=== PATIENT | female | born 1990 | race Caucasian/White ===

== ENCOUNTER 2020-05-09 07:51 | Inpatient (IN) ==
[2020-05-09] MEDS ORDERED: LACTATED RINGER'S 1,000 ML IV PRN (08:27)
[2020-05-09] MEDS ORDERED: OXYTOCIN 30 UNITS/500 ML BAG IV PRN (08:27)
--- NOTE | 2020-05-09 08:50 | History & Physical Report ---
Date of Service May 09, 2020 Assessment & Plan (1) Obesity affecting in third trimester, antepartum: (2) Large for gestational age fetus: Patient is a 29-year-old at 39 weeks and 6 days of gestation presenting today for scheduled induction of labor at term due to obesity, polyhydramnios and large for gestational age and suspected macrosomia. Last ultrasound by [facility] was 4260 g which was over 97 percentile. Elevated blood pressures, lower extremity and abdominal skin edema and no severe features Plan to admit, labs, IV fluids and repeat ultrasound for estimated weight and then make a plan for results. All questions were answered. (3) Abnormal glucose affecting : (4) Polyhydramnios affecting in third trimester: (5) Elevated blood pressure affecting in third trimester, antepartum: Admission and Anticipated Discharge Date Admission Date: May 09, 2020 History of Present Illness Primary Care Provider: NO PCP Patient is a 29-year-old at 39 weeks and 6 days of gestation presenting today for induction of labor at term due to suspected macrosomia, polyhydramnios and obesity. She has no complaints other than swelling in her legs and abdomen which has been going on for weeks. She denies contractions, leakage of fluid, vaginal bleeding, headaches, change in her vision, nausea and vomiting, right upper quadrant or epigastric pain. She reports good movements. Her has been complicated by 1 class II obesity 2 polyhydramnios 3 abnormal Glucola, 1 hour 50 g Glucola was elevated and 3-hour OGTT had 1 out of 4 numbers was elevated 4 large for gestational age, baby has been measuring more than 97 percentile by ultrasound. Last ultrasound was done by [facility] on April 30 and estimated weight was 4260 g which was over 97 percentile, head circumference and abdominal circumference variable 99 percentile. She understands that ultrasound is limited, with an error rate of up to 15% more or less with the estimated weight. Discussed the risk of macrosomia during labor with protracted labor, prolonged sitting second stage, shoulder dystocia with risks of clavicle fracture, nerve injury, hypoxia and even . Patient understands all and agrees for another ultrasound today for estimated weight. All questions were answered. Allergies Allergy/AdvReac Type Severity Reaction Status Date / Time No Known Allergies Allergy Unverified 05/03/20 11:58 Home Medications Home Medications Medication Instructions Recorded Confirmed Type [id number]-[id number] 1 tab PO QAM 05/03/20 History [] Patient History Medical History No known health problems Surgical History H/O sinus surgery History of endoscopic sinus surgery x2 History of tonsillectomy and adenoidectomy Social History Smoking Status: Never smoker Second Hand Exposure: No; Hx Alcohol Use: No Hx Substance Use: No Preferred Language: Somali Communication Ability: Effective [employer] Processing [employer] Operator Required: No Beliefs That Will Affect Care: None Current Living Situation: Significant Other Feels Safe at Home: Yes Assistive Devices: Contacts and Glasses 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 Review of Systems All systems reviewed & are unremarkable except as noted in HPI & below Physical Exam Constitutional: WD/WN, vitals as above (Blood pressures are elevated despite changing cuff for larger size) + morbidly obese Respiratory: normal respiratory effort, lungs clear to auscultation Cardiovascular: RRR, no murmur, no edema Rate/Rhythm: regular rate and regular rhythm Gastrointestinal (Abdomen): Inspection/Auscultation: + abdomen distended (Gravid, edema of abdominal skin more on the lower area) Musculoskeletal: Extremities, 3+ lower extremity edema bilaterally and skin tightness. Results & Data ([facility]) Vital Signs (Past 12 Hours) Vital Signs Pulse BP 05/09/20 08:08 85 158/90 H 05/09/20 08:07 85 141/95 H Monitoring External Monitor heart rate at 140s to 150s confirmed by ultrasound, unable to keep baby on the monitor all the time. Tocodynamometer No contractions.
[2020-05-09 09:07] LABS: Basophils # (auto) 0.02 K/uL (0-0.2); Basophils % (auto) 0.2 %; Eosinophils # (auto) 0.04 K/uL (0-0.5); Eosinophils % (auto) 0.4 %; Hematocrit (blood only) 35.9 % (37-47); Hemoglobin 11.7 g/dL (12.0-16.0); Immature Granulocytes # (auto) 0.04 K/uL (0.00-0.02); Immature Granulocytes % (auto) 0.4 %; Lymphocytes # (auto) 1.41 K/uL (1.2-3.4); Lymphocytes % (auto) 14.6 %; Mean Corpuscular Hemoglobin 26.9 pg (25-34); Mean Corpuscular Hgb Conc 32.6 g/dL (32-36); Mean Corpuscular Volume 82.5 fL (80-100); Mean Platelet Volume 10.7 fL (7.4-10.4); Monocytes # (auto) 0.43 K/uL (0.11-0.59); Monocytes % (auto) 4.5 %; Neutrophils % (auto) 79.9 %; Platelet Count 210 K/uL (130-400); RDW Coefficient of Variation 13.3 % (11.5-14.5); RDW Standard Deviation 40.2 fL (36.4-46.3); Red Blood Count 4.35 M/uL (4.2-5.4); White Blood Count 9.64 K/uL (4.8-10.8)
[2020-05-09 09:29] LABS: Albumin Level 2.3 gm/dl (3.4-5.0); Calcium 8.5 mg/dl (8.5-10.1); Creatinine Clr Calc Pharmacy 204.4 ml/min; Est GFR (African American) 140.2; Potassium 3.6 mmol/L (3.5-5.1)
[2020-05-09 09:31] LABS: Albumin Globulin Ratio 0.6 (0.9-2); Bilirubin,Total 0.2 mg/dl (0.2-1); Globulin 3.8 gm/dl (2.5-4.0); Total Protein 6.1 gm/dl (6.4-8.2)
--- NOTE | 2020-05-09 10:14 | Ultrasound Report ---
ULTRASOUND LIMITED CLINICAL HISTORY: Large for dates. COMPARISON STUDY: No priors. FINDINGS: Real-time, grayscale, and color Doppler sonography of the fetus and gravid uterus is perfor med. There is a single live uterine gestation with estimated heart rate of 145 bpm. Positioning is ce phalic. The placenta is anterior and normal in appearance. Amniotic fluid volume appears grossly dimi nished. The amniotic fluid index was not calculated. Abdominal circumference: 37.44 cm corresponding to an estimated age of 41 weeks 3 days. Biparietal diameter: 9.3 cm corresponding to an estimated age of 40 weeks 2 days. Head circumference: 34.95 cm, corresponding to estimated age of 40 weeks 4 days. Femoral length: 8.03 cm, corresponding to estimated age of 41 weeks 0 days. The cumulative estimation of dates is 40 weeks 4 days +/- 1 week 0 days. Estimated weight is 4285 g +/- 643 g. IMPRESSION: 1. There is a single live intrauterine gestation with an estimated age of 40 weeks 4 days. 2. Note that this does not constitute a dedicated anatomic scan. 3. The anatomic fluid volume appears grossly diminished. Dictated: 05/09/2020 9:48 AM Transcribed: 05/09/2020 10:11 AM [facility] [id number] [email or web address] Electronically signed by: Milton Fung M.D. 05/09/2020 10:12 AM
--- NOTE | 2020-05-09 10:22 | Obstetrical Progress Note ---
Date of Service May 09, 2020 Assessment & Plan Admission and Anticipated Discharge Date Admission Date: May 09, 2020 Subjective Patient is back from ultrasound. Estimated weight is 4285 g +/- 643 g Discussed above and a cog recommendation of elective if estimated weight is more than 5000 g with no history of diabetes and 4500 g with a history of gestational diabetes. Understands that ultrasound has limitations as above 643 g. Discussed the risk of shoulder dystocia and as a major surgery with risks of bleeding, infection, injury to surrounding organs, blood clots in legs or lungs and prolonged recovery. Patient understands all and desires to proceed with trial of vaginal . Discussed induction of labor and cervical ripening with prostaglandins, oral Cytotec versus intravaginal Cervidil. Patient desires intravaginal Cervidil for cervical ripening. Understands induction may take 1 to 3 days depending on her response to medications. All questions were answered. Results & Data ([facility]) Vital Signs (Past 12 Hours) Vital Signs Temp Pulse Resp BP 05/09/20 08:31 37.0 C 20 05/09/20 08:08 85 158/90 H 05/09/20 08:07 37.0 C 85 20 141/95 H
[2020-05-09] MEDS ORDERED: DINOPROSTONE 10 MG INSERT PV ONE (10:30)
[2020-05-09] MEDS ORDERED: FLUCONAZOLE 50 MG TAB PO ONE ×2 (11:00→22:26)
--- NOTE | 2020-05-09 15:32 | Obstetrical Progress Note ---
Date of Service May 09, 2020 Assessment & Plan Admission and Anticipated Discharge Date Admission Date: May 09, 2020 Subjective Patient is reevaluated She fels well, no complaints No ctxs/ LOF/VB +FM Feels mild irregular cramps, 1/10 in intensity She zhao sbeen ambulating in hallway and in her room FHR 130's, reactive, accels+, no decels Continue to monitor and with cervical ripening. SCD's while in bed Results & Data ([facility]) Vital Signs (Past 12 Hours) Vital Signs Temp Pulse Resp BP 05/09/20 14:31 37.0 C 75 22 137/81 05/09/20 10:58 70 143/84 H 05/09/20 08:31 37.0 C 20 05/09/20 08:08 85 158/90 H 05/09/20 08:07 37.0 C 85 20 141/95 H
--- NOTE | 2020-05-09 22:26 | Obstetrical Progress Note ---
Date of Service May 09, 2020 Assessment & Plan Admission and Anticipated Discharge Date Admission Date: May 09, 2020 Subjective Patient is reevaluated. She feels contractions more often and more painful now. They are coming every 4-5 minutes and pain level is 5 out of 10. No leakage of fluid or vaginal bleeding. Good movements. She is hungry and likes to eat regular food. Vaginal exam, vagina also has cottage cheese discharge erythema and tenderness, consistent with Robyn. Patient was prescribed Diflucan this morning but she refused to take it. Very tender during exam Cervidil was removed but unable to reach her cervix due to discomfort. Unlikely change in cervix, which was very high posterior and closed. Discussed the finding and recommended antifungal for yeast infection and now she agrees. Discussed cervical ripening with oral Cytotec and she prefers that. heart rate has been reassuring. Blood pressures have been within normal limits and she had normal labs. We will continue to monitor closely. All questions were answered. Results & Data ([facility]) Vital Signs (Past 12 Hours) Vital Signs Temp Pulse Resp BP 05/09/20 19:17 36.7 C 74 20 137/85 05/09/20 19:15 68 150/93 H 05/09/20 14:31 37.0 C 75 22 137/81 05/09/20 10:58 70 143/84 H
[2020-05-09] MEDS ORDERED: BUTORPHANOL TARTRATE 1 MG/ML VIAL IV PRN (22:45)
[2020-05-09] MEDS ORDERED: miSOPROStoL 50 MCG TAB ONE (22:52)
[2020-05-10] MEDS: miSOPROStoL 50 MCG TAB PO SCH ×6 (00:30→19:40)
[2020-05-10] MEDS ORDERED: FLUCONAZOLE 50 MG TAB PO ONE (10:33)
--- NOTE | 2020-05-10 10:33 | Obstetrical Progress Note ---
Date of Service May 10, 2020 Assessment & Plan Admission and Anticipated Discharge Date Admission Date: May 09, 2020 Physical Exam Genitourinary: Manual OB Exam: + cervical dilation fingertip, + cervical effacement (0%) and + station high OB Exam Monitor Tracing: + external FHT monitor used and + external uterine monitor used Continue Cytotec orally Results & Data ([facility]) Vital Signs (Past 12 Hours) Vital Signs Temp Pulse Resp BP 05/10/20 10:16 82 154/86 H 05/10/20 07:41 64 174/90 H 05/10/20 07:30 36.7 C 05/10/20 07:23 85 167/96 H 05/10/20 07:22 72 166/91 H 05/10/20 04:32 73 130/76 05/10/20 04:31 36.8 C 05/10/20 01:16 71 140/87 05/09/20 23:06 36.7 C 05/09/20 22:59 77 155/79 H
[2020-05-10] MEDS ORDERED: LABETALOL HCL 100 MG TAB PO ONE (14:32)
[2020-05-10 15:49] LABS: Basophils # (auto) 0.01 K/uL (0-0.2); Basophils % (auto) 0.1 %; Eosinophils # (auto) 0.04 K/uL (0-0.5); Eosinophils % (auto) 0.4 %; Hematocrit (blood only) 37.2 % (37-47); Hemoglobin 12.1 g/dL (12.0-16.0); Immature Granulocytes # (auto) 0.01 K/uL (0.00-0.02); Immature Granulocytes % (auto) 0.1 %; Lymphocytes # (auto) 1.24 K/uL (1.2-3.4); Lymphocytes % (auto) 12.8 %; Mean Corpuscular Hemoglobin 27.2 pg (25-34); Mean Corpuscular Volume 83.6 fL (80-100); Mean Platelet Volume 10.8 fL (7.4-10.4); Monocytes # (auto) 0.62 K/uL (0.11-0.59); Monocytes % (auto) 6.4 %; Neutrophils # (auto) 7.73 K/uL (1.4-6.5); Neutrophils % (auto) 80.2 %; Platelet Count 228 K/uL (130-400); RDW Coefficient of Variation 13.5 % (11.5-14.5); RDW Standard Deviation 40.6 fL (36.4-46.3); Red Blood Count 4.45 M/uL (4.2-5.4); White Blood Count 9.65 K/uL (4.8-10.8)
[2020-05-10 15:57] LABS: Mean Corpuscular Hgb Conc 32.5 g/dL (32-36)
[2020-05-10 16:10] LABS: Albumin Level 2.2 gm/dl (3.4-5.0); BUN Creatinine Ratio 13.6 (10-20); Calcium 8.5 mg/dl (8.5-10.1); Est GFR (African American) 138.1; Est GFR (Non-African American) 119.1; Potassium 3.8 mmol/L (3.5-5.1)
[2020-05-10 16:13] LABS: Albumin Globulin Ratio 0.6 (0.9-2); Bilirubin,Total 0.3 mg/dl (0.2-1); Total Protein 6.2 gm/dl (6.4-8.2)
[2020-05-10] MEDS ORDERED: LABETALOL HCL 100 MG TAB PO SCH (21:00)
[2020-05-10] MEDS ORDERED: DINOPROSTONE 10 MG INSERT PV ONE (23:15)
--- NOTE | 2020-05-10 23:48 | Obstetrical Progress Note ---
Date of Service May 10, 2020 Assessment & Plan Admission and Anticipated Discharge Date Admission Date: May 09, 2020 Physical Exam Physical Exam: Cervidil placed vaginally for cervical ripening. T Cat 1. Cervix remains unchanged. Will monitor intermittently overnight. Results & Data ([facility]) Vital Signs (Past 12 Hours) Vital Signs Temp Pulse Resp BP 05/10/20 23:08 36.7 C 79 20 135/82 05/10/20 20:52 71 142/87 H 05/10/20 19:03 36.7 C 73 20 157/83 H 05/10/20 16:53 85 166/85 H 05/10/20 16:12 76 146/77 H 05/10/20 15:43 86 163/83 H 05/10/20 15:07 79 184/108 H 05/10/20 14:41 36.8 C 79 18 182/98 H 05/10/20 14:25 85 189/104 H 05/10/20 13:15 71 186/99 H 05/10/20 13:14 70 188/92 H
[2020-05-11] MEDS: miSOPROStoL 50 MCG TAB PO SCH (07:48)
--- NOTE | 2020-05-11 08:29 | Progress Note ---
Date of Service May 11, 2020 Assessment & Plan Admission and Anticipated Discharge Date Admission Date: May 09, 2020 Subjective Pt doing well s/p induction for polyhydramnios, LGA and obesity pt has received Cytotec and Cervidil x 2 days presently has Cervidil in vagina - comes out at 11;00 will evaluate pt at that time Results & Data ([facility]) Vital Signs (Past 12 Hours) Vital Signs Temp Pulse Resp BP 05/11/20 07:19 36.8 C 18 05/11/20 07:03 79 166/88 H 05/11/20 06:00 36.9 C 81 20 144/97 H 05/11/20 01:47 36.9 C 81 20 139/79 05/10/20 23:08 36.7 C 79 20 135/82 05/10/20 20:52 71 142/87 H
--- NOTE | 2020-05-11 08:32 | Progress Note ---
Date of Service May 11, 2020 Assessment & Plan Admission and Anticipated Discharge Date Admission Date: May 09, 2020 Subjective Elevated BP - ON labetalol 100mg will increase dose to 200mg Results & Data ([facility]) Vital Signs (Past 12 Hours) Vital Signs Temp Pulse Resp BP 05/11/20 07:19 36.8 C 18 05/11/20 07:03 79 166/88 H 05/11/20 06:00 36.9 C 81 20 144/97 H 05/11/20 01:47 36.9 C 81 20 139/79 05/10/20 23:08 36.7 C 79 20 135/82 05/10/20 20:52 71 142/87 H
[2020-05-11] MEDS: LABETALOL HCL 200 MG TAB PO SCH ×2 (09:15→21:17)
[2020-05-11] MEDS ORDERED: Nursing to Pharmacy Communication SCH (09:45)
--- NOTE | 2020-05-11 12:49 | Progress Note ---
Date of Service May 11, 2020 Assessment & Plan Admission and Anticipated Discharge Date Admission Date: May 09, 2020 Subjective pt doing well Cervidil removed Attempt to place Boudreaux bulb was unsuccessfully. pt could not tolerate speculum exam VE; ft/50/-3 will start Pitocin Sono done 05/09/20 was 4300grams @ [facility] she was offered c/sec by Dr Borrero on admission and refused We have discussed risk of shoulder dystocia and neurological damage from dystocia pt does not think "larger babies" are a problem because she has a niece who delivered a9-10 lb baby without a problem we have agreed to a try of pitocin Results & Data ([facility]) Vital Signs (Past 12 Hours) Vital Signs Temp Pulse Resp BP 05/11/20 11:07 90 163/91 H 05/11/20 11:05 36.9 C 18 05/11/20 09:14 83 168/98 H 05/11/20 07:19 36.8 C 18 05/11/20 07:03 79 166/88 H 05/11/20 06:00 36.9 C 81 20 144/97 H 05/11/20 01:47 36.9 C 81 20 139/79
[2020-05-11] MEDS ORDERED: NIFEdipine EXTENDED REL 30 MG TABCR PO STA (13:40)
[2020-05-11] MEDS ORDERED: OXYTOCIN 30 UNITS/500 ML BAG IV PRN (13:40)
[2020-05-11] MEDS ORDERED: LACTATED RINGER'S 1,000 ML IV PRN (13:58)
[2020-05-11] MEDS ORDERED: LACTATED RINGER'S 1,000 ML IV SCH ×3 (19:15→22:45)
[2020-05-11] MEDS ORDERED: METOCLOPRAMIDE HCL INJ 5 MG/ML 2 ML VIAL ONE (20:18)
[2020-05-11] MEDS ORDERED: ePHEDrine sulfate 50 MG/ML AMP ONE (20:18)
[2020-05-11] MEDS ORDERED: OXYTOCIN 10 UNITS/ML VIAL ONE ×4 (20:18→22:20)
[2020-05-11] MEDS ORDERED: PHENYLEPHRINE HCL 10 MG/ML VIAL ONE (20:18)
[2020-05-11] MEDS ORDERED: ONDANSETRON INJ 2 MG/ML 2 ML VIAL ONE (20:18)
[2020-05-11] MEDS ORDERED: fentaNYL citrate 100 MCG/2 ML VIAL ONE (20:19)
[2020-05-11] MEDS ORDERED: MoRPHine SULFATE PF 1 MG/ML 10 ML AMP/VIAL ONE (20:19)
--- NOTE | 2020-05-11 20:31 | Anesthesiology Consultation ---
Date of Service May 11, 2020 Assessment & Plan Chart Review Chart Review: Acceptable Risk for Surgery Consults Requested none ASA ASA3 Proposed Anesthesia Anesthesia Type: Spinal Risk / Benefits Reviewed With: PT / POA / Parent / Guardian, Accepts Plan and Informed Consent Obtained History Surgery Operation Date: 05/11/20 20:15 Proposed Procedures p Section in LD - Kiran Santizo MD Height/Weight Height: 5 ft 9 in Weight: 144.696 kg Allergies Allergy/AdvReac Type Severity Reaction Status Date / Time No Known Allergies Allergy Unverified 05/03/20 11:58 Medications Home Medications Medication Instructions Recorded Confirmed Last Taken yvfwtxfu-[id number]-Gn-FA 1 tab PO QAM 05/03/20 05/09/20 Unknown [] Active Medications Generic Name Dose Route Start Last Admin Trade Name Freq PRN Reason Stop Dose Admin Oxytocin 30 units in 500 mls @ 0 mls/hr 05/11/20 13:40 05/11/20 20:10 Pitocin IV 05/13/20 13:39 0 units/hr .Q0M PRN 0 mls/hr Labor Induction/Augmentation Titration Protocol 0 UNITS/HR Labetalol HCl 200 mg 05/11/20 09:00 05/11/20 09:15 Labetalol Hcl 200 Mg Tab PO 06/10/20 08:59 200 mg BID NUPUR Administration NPO Date Last Intake of Fluids: 05/11/20 Time Last Intake of Fluids: 19:30 Date Last Intake of Solids: 05/11/20 Past Medical History Medical History No known health problems Exercise / Class Metabolic Activity II 4-5 Yardwork/Stairs/Walk up hill Past Surgical History Surgical History (Updated 05/11/20 @ 20:30 by Rasheeda Dial DO) H/O hand surgery H/O sinus surgery History of endoscopic sinus surgery x2 History of tonsillectomy and adenoidectomy Past Anesthesia History No Hx of Anesthesia Complications and No Family Hx of Anesthesia Complications History of PONV No Hx of PONV and No Hx of Motion Sickness Social History Smoking Status: Former smoker Hx Alcohol Use: No Hx Substance Use: No substance use type: does not use Physical Exam Vital Signs Last Vital Signs Temp 36.9 C 05/11/20 19:05 Pulse 87 05/11/20 19:05 Resp 18 05/11/20 19:05 BP 145/81 H 05/11/20 19:05 ENMT Mouth: no TMJ abnormality Thyromental Distance: > or= 3.5 Finger Breadths Mallampati Class: II Neck normal visual inspection and trachea midline; neck extension not limited Respiratory normal respiratory effort Auscultation: lungs clear to auscultation bilaterally Cardiovascular Rate/Rhythm: regular rate and regular rhythm Heart Sounds: no murmur Musculoskeletal Spine: normal cervical ROM Extremities: full ROM of extremities Neurologic moves all extremities Psychiatric Orientation: alert and oriented x 3 Testing Laboratory Results 05/10/20 15:38 05/10/20 15:38 Blood Type A Positive 05/09/20 08:47 Antibody Screen NEGATIVE 05/09/20 08:47
[2020-05-11] MEDS ORDERED: MoRPHine SULFATE PF 1 MG/ML 10 ML AMP/VIAL INT SPINAL ONE (20:40)
[2020-05-11] MEDS ORDERED: NALOXONE HCL 1 MG in SODIUM CHLORIDE 0.9% 1000ML 1,000 ML IV PRN (20:40)
[2020-05-11] MEDS ORDERED: NALOXONE HCL 0.4 MG/1 ML VIAL/CARP IV PRN (20:40)
[2020-05-11] MEDS ORDERED: ePHEDrine sulfate 50 MG/ML AMP IV PRN (20:40)
[2020-05-11] MEDS ORDERED: ONDANSETRON INJ 2 MG/ML 2 ML VIAL IV PRN (20:40)
[2020-05-11] MEDS ORDERED: MEPERIDINE HCL 25 MG/ML CARP/VIAL IV PRN (20:40)
[2020-05-11] MEDS ORDERED: LACTATED RINGER'S 500 ML IV PRN (20:40)
[2020-05-11] MEDS ORDERED: diphenhydrAMINE 50 MG/ML VIAL IV PRN (20:40)
[2020-05-11] MEDS ORDERED: METOCLOPRAMIDE HCL 20 MG in SODIUM CHLORIDE 0.9% 50 ML IV PRN (20:40)
[2020-05-11] MEDS ORDERED: NALOXONE HCL 0.08 MG in SYRINGE 1.8 ML IV PRN (20:40)
[2020-05-11] MEDS ORDERED: SODIUM CHLORIDE 0.9% 1000ML 1,000 ML IV SCH (20:45)
[2020-05-11] MEDS ORDERED: NO NARCOTICS OR SEDATIVES SCH (20:45)
[2020-05-11] MEDS ORDERED: METHYLERGONOVINE MALEATE 0.2 MG/ML AMP ONE (21:40)
[2020-05-11 22:07] LABS: Base Excess Cord Arterial Bld -0.5 mEq/L (-9-1.8); CO2 Cord Arterial Blood 59 mmHg (39.1-73.5); HCO3 Cord Arterial Blood 28 mmol/L (19.7-28.5); PO2 Cord Arterial Blood 20 mmHg (4.1-31.7); pH Cord Arterial Blood 7.29 (7.1-7.38)
[2020-05-11 22:18] LABS: Base Excess Cord Venous Blood -1.3 mEq/L (-7.7-1.9); Cord Venous Blood HCO3 24 mmol/L (18.4-26.8); Cord Venous Blood PCO2 45 mmHg (30.4-57.2); Cord Venous Blood PO2 37 mmHg (14.1-43.3); Cord Venous Blood pH 7.36 (7.20-7.44)
[2020-05-11 22:19] LABS: Oxygen Sat Cord Arterial Blood < 60.0 % (<60)
[2020-05-11] MEDS ORDERED: PHENYLEPHRINE 100MCG/ML 5ML SYR ONE (22:21)
[2020-05-11] MEDS ORDERED: HYDROCORTISONE ACETATE 25 MG SUPP PR PRN (22:38)
[2020-05-11] MEDS ORDERED: SUPERCREAM 0.870% 15 GM JAR EXT PRN (22:38)
[2020-05-11] MEDS ORDERED: DIPHTHERIA/TETANUS/PERTUSSIS 0.5 ML SYR/VIAL IM ONE (22:38)
[2020-05-11] MEDS ORDERED: SENNA 8.6 MG TAB PO PRN (22:38)
[2020-05-11] MEDS ORDERED: BENZOCAINE 20% AER SPR 82.5 GM CAN EXT PRN (22:38)
[2020-05-11] MEDS ORDERED: MAGNESIUM HYDROXIDE SUSP 30 ML UDC PO PRN (22:38)
[2020-05-11] MEDS ORDERED: PROMETHAZINE HCL 25 MG in SODIUM CHLORIDE 0.9% 50 ML IV PRN (22:38)
--- NOTE | 2020-05-11 22:47 | Post Operative Brief Note ---
Immediate Post Op Note v1 Date of Surgery May 11, 2020 Pre & Post Diagnosis Operation Date: 05/11/20 20:15 Pre-Op Diagnosis: 1. Pending macrosomnia Post-Op Diagnosis: 1. Same 2. Delivery of live female child at 2132 I identified the patient and participated in the time-out.: Yes Procedure Operation Date: 05/11/20 20:15 Actual Procedures p Section in LD - Kiran Santizo MD Surgeon Kiran Santizo MD Lab Technician dr andrade Estimated Blood Loss 900 Findings Consistent with Post-Op Diagnosis Drains Boudreaux Catheter
--- NOTE | 2020-05-11 22:55 | Anesthesiology Progress Note ---
Date of Service May 11, 2020 Anesthesia Post Procedure Vital Signs Vital Signs: Temp Pulse Resp BP Pulse Ox 05/11/20 22:52 133 H 148/91 H 05/11/20 22:50 99 H 97 05/11/20 22:48 94 H 90 05/11/20 22:45 105 H 97 05/11/20 22:41 99 H 139/95 05/11/20 19:05 36.9 C 87 18 145/81 H 05/11/20 18:01 77 152/91 H 05/11/20 17:30 18 05/11/20 16:00 36.7 C 18 05/11/20 15:30 18 05/11/20 15:00 36.8 C 77 20 145/86 H 05/11/20 13:54 36.8 C 77 20 145/86 H 05/11/20 11:07 90 163/91 H 05/11/20 11:05 36.9 C 18 05/11/20 09:14 83 168/98 H 05/11/20 07:19 36.8 C 18 05/11/20 07:03 79 166/88 H 05/11/20 06:00 36.9 C 81 20 144/97 H 05/11/20 01:47 36.9 C 81 20 139/79 05/10/20 23:08 36.7 C 79 20 135/82 Transfer of Care Handoff Completed per policy Notes Mental Status: alert / awake / arousable and participated in evaluation Nausea / Vomiting: adequately controlled Pain: adequately controlled Airway Patency, RR, SpO2: stable & adequate BP & HR: stable & adequate Hydration State: stable & adequate Neuraxial Anesthesia: was administered and sensory block is resolving Anesthetic Complications: no major complications apparent and Pt Satisfied with anesthetic care
[2020-05-12] MEDS: LABETALOL HCL 200 MG TAB PO SCH ×3 (00:30→20:59)
[2020-05-12] MEDS: MoRPHine SULFATE 2 MG/ML CARP IV PRN ×2 (01:14→04:40)
[2020-05-12] MEDS ORDERED: OXYTOCIN 20 UNITS in LACTATED RINGER'S 1,000 ML IV SCH (01:30)
[2020-05-12] MEDS ORDERED: CITRIC ACID/SODIUM CITRATE 15 ML UDC PO SCH (06:00)
[2020-05-12 06:15] LABS: Basophils # (auto) 0.01 K/uL (0-0.2); Basophils % (auto) 0.1 %; Eosinophils # (auto) 0.02 K/uL (0-0.5); Eosinophils % (auto) 0.1 %; Hematocrit (blood only) 31.9 % (37-47); Hemoglobin 10.6 g/dL (12.0-16.0); Immature Granulocytes # (auto) 0.02 K/uL (0.00-0.02); Immature Granulocytes % (auto) 0.1 %; Lymphocytes # (auto) 1.43 K/uL (1.2-3.4); Mean Corpuscular Hemoglobin 27.5 pg (25-34); Mean Corpuscular Hgb Conc 33.2 g/dL (32-36); Mean Corpuscular Volume 82.6 fL (80-100); Mean Platelet Volume 10.5 fL (7.4-10.4); Neutrophils # (auto) 11.86 K/uL (1.4-6.5); Neutrophils % (auto) 82.7 %; Platelet Count 206 K/uL (130-400); RDW Coefficient of Variation 13.6 % (11.5-14.5); Red Blood Count 3.86 M/uL (4.2-5.4); White Blood Count 14.34 K/uL (4.8-10.8)
[2020-05-12 06:32] LABS: Prothrombin Time 10.3 Seconds (9.0-12.0)
[2020-05-12] MEDS: KETOROLAC 30 MG/ML VIAL IV PRN ×3 (07:38→13:36)
[2020-05-12] MEDS: SIMETHICONE 80 MG CHEW PO SCH ×4 (07:42→21:00)
[2020-05-12] MEDS: DOCUSATE SODIUM 100 MG CAP PO SCH ×2 (07:42→21:00)
[2020-05-12] MEDS: metroNIDAZOLE 500 MG TAB PO SCH ×3 (07:42→23:05)
[2020-05-12] MEDS: FERROUS SULFATE 325 MG TAB PO SCH (07:42)
[2020-05-12] MEDS: cephALEXin 500 MG CAP PO SCH ×3 (07:42→23:05)
[2020-05-12] MEDS: PRENATAL VITAMIN 1 TAB PO SCH (07:42)
[2020-05-12] MEDS: ENOXAPARIN INJ 40 MG/0.4 ML SYR SQ SCH (07:48)
--- NOTE | 2020-05-12 10:36 | Obstetrical Progress Note ---
Date of Service May 12, 2020 Assessment & Plan Admission and Anticipated Discharge Date Admission Date: May 09, 2020 Physical Exam Physical Exam: bandage is clean and dry no calf tenderness abdomen soft and non tender bowel sounds present hypoactive vaginal bleeding scant hgb 10.6 Results & Data ([facility]) Vital Signs (Past 12 Hours) Vital Signs Temp Pulse Pulse Pulse Resp BP BP 05/12/20 08:05 18 05/12/20 08:00 37.2 C 98 H 18 147/93 H 05/12/20 07:35 18 05/12/20 06:25 37.3 C 106 H 16 147/95 H 05/12/20 05:05 16 05/12/20 04:05 18 05/12/20 03:00 18 05/12/20 02:40 37.1 C 95 H 18 140/86 05/12/20 02:00 16 05/12/20 01:21 117 H 05/12/20 01:16 109 H 05/12/20 01:11 99 H 05/12/20 01:06 109 H 05/12/20 01:01 105 H 05/12/20 00:56 111 H 05/12/20 00:51 124 H 05/12/20 00:46 100 H 05/12/20 00:42 96 H 156/74 H 05/12/20 00:41 37.0 C 101 H 20 05/12/20 00:36 96 H 05/12/20 00:33 18 05/12/20 00:31 98 H 05/12/20 00:26 96 H 05/12/20 00:22 101 H 141/74 H 05/12/20 00:21 96 H 05/12/20 00:16 120 H 05/12/20 00:11 95 H 05/12/20 00:06 102 H 05/12/20 00:05 102 H 163/95 H 05/12/20 00:01 119 H 05/11/20 23:56 98 H 05/11/20 23:52 161/75 H 05/11/20 23:51 100 H 05/11/20 23:46 114 H 05/11/20 23:42 101 H 160/78 H 05/11/20 23:41 37.0 C 103 H 18 05/11/20 23:36 111 H 05/11/20 23:33 108 H 163/85 H 05/11/20 23:31 120 H 18 05/11/20 23:26 108 H 05/11/20 23:22 108 H 162/70 H 05/11/20 23:21 106 H 18 05/11/20 23:16 100 H 05/11/20 23:12 95 H 182/77 H 05/11/20 23:11 99 H 18 05/11/20 23:06 109 H 05/11/20 23:02 96 H 157/90 H 05/11/20 23:01 124 H 18 05/11/20 22:56 114 H 05/11/20 22:54 119 H 05/11/20 22:52 133 H 148/91 H 05/11/20 22:51 20 05/11/20 22:50 99 H 05/11/20 22:48 94 H 05/11/20 22:45 105 H 05/11/20 22:41 36.8 C 99 H 20 139/95 Pulse Ox 05/12/20 08:05 99 05/12/20 08:00 99 05/12/20 07:35 99 05/12/20 06:25 99 05/12/20 05:05 99 05/12/20 04:05 99 05/12/20 03:00 99 05/12/20 02:40 99 05/12/20 02:00 96 05/12/20 01:21 97 05/12/20 01:16 95 05/12/20 01:11 95 05/12/20 01:06 95 05/12/20 01:01 95 05/12/20 00:56 96 05/12/20 00:51 96 05/12/20 00:46 97 05/12/20 00:42 05/12/20 00:41 97 05/12/20 00:36 97 05/12/20 00:33 05/12/20 00:31 96 05/12/20 00:26 96 05/12/20 00:22 05/12/20 00:21 97 05/12/20 00:16 97 05/12/20 00:11 96 05/12/20 00:06 96 05/12/20 00:05 05/12/20 00:01 95 05/11/20 23:56 96 05/11/20 23:52 05/11/20 23:51 95 05/11/20 23:46 95 05/11/20 23:42 05/11/20 23:41 96 05/11/20 23:36 97 05/11/20 23:33 05/11/20 23:31 96 05/11/20 23:26 96 05/11/20 23:22 05/11/20 23:21 96 05/11/20 23:16 96 05/11/20 23:12 05/11/20 23:11 96 05/11/20 23:06 98 05/11/20 23:02 05/11/20 23:01 96 05/11/20 22:56 96 05/11/20 22:54 85 L 05/11/20 22:52 05/11/20 22:51 05/11/20 22:50 97 05/11/20 22:48 90 05/11/20 22:45 97 05/11/20 22:41
[2020-05-12] MEDS ORDERED: diphenhydrAMINE Capsule 25 MG CAP PO PRN (14:40)
[2020-05-12] MEDS ORDERED: ONDANSETRON INJ 2 MG/ML 2 ML VIAL IV PRN (14:40)
[2020-05-12] MEDS ORDERED: diphenhydrAMINE 50 MG/ML VIAL IV PRN (14:40)
[2020-05-12] MEDS ORDERED: ZOLPIDEM TARTRATE 5 MG TAB PO PRN (14:40)
[2020-05-12] MEDS ORDERED: DC INTRASPINAL MORPHINE SCH (14:40)
[2020-05-12] MEDS: IBUPROFEN 600 MG TAB PO PRN (18:19)
[2020-05-12] MEDS: oxyCODONE/ACETAMINOPHEN 5mg/325mg TAB PO PRN (18:19)
[2020-05-12] MEDS ORDERED: bisacodyL 5 MG TABEC PO SCH (20:00)
[2020-05-13] MEDS: IBUPROFEN 600 MG TAB PO PRN ×3 (00:13→08:43)
[2020-05-13] MEDS: oxyCODONE/ACETAMINOPHEN 5mg/325mg TAB PO PRN ×3 (00:14→08:44)
[2020-05-13 05:49] LABS: Hematocrit (blood only) 27.1 % (37-47); Hemoglobin 8.9 g/dL (12.0-16.0)
--- NOTE | 2020-05-13 07:51 | Obstetrical Progress Note ---
Date of Service May 13, 2020 Assessment & Plan Admission and Anticipated Discharge Date Admission Date: May 09, 2020 Physical Exam Physical Exam: abdomen soft and non tender passing flatus incision is clean and dry no calf tenderness ambulating well vaginal bleeding scant hgb 8.9 patient requests discharge Results & Data ([facility]) Vital Signs (Past 12 Hours) Vital Signs Temp Pulse Resp BP Pulse Ox 05/12/20 23:30 37.1 C 103 H 20 136/79 96
[2020-05-13] MEDS: SIMETHICONE 80 MG CHEW PO SCH (08:42)
[2020-05-13] MEDS: DOCUSATE SODIUM 100 MG CAP PO SCH (08:44)
[2020-05-13] MEDS: FERROUS SULFATE 325 MG TAB PO SCH (08:45)
[2020-05-13] MEDS: metroNIDAZOLE 500 MG TAB PO SCH (08:46)
[2020-05-13] MEDS: LABETALOL HCL 200 MG TAB PO SCH (08:48)
[2020-05-13] MEDS: ENOXAPARIN INJ 40 MG/0.4 ML SYR SQ SCH (08:52)
[2020-05-13] MEDS: PRENATAL VITAMIN 1 TAB PO SCH (09:06)
--- NOTE | 2020-05-13 09:06 | Discharge Summary (DS) ---
Patient is a 1, para 1, blood type O positive, group B strep negative, was admitted for being postdates. She had obesity associated with , elevated blood pressure and polyhydramnios. She underwent a 3-day induction that failed. They could not get the cervix open at all. They were unable even to put in a Boudreaux balloon. They did several tapes, several Cytotec. On the third day, she underwent a primary low segment section due to the patient's weight and a very high position of the head. We made a midline incision and then did a primary low segment section. At the time of , there was a true knot in the cord and there was a low anterior placenta. The entry into the uterus was just a tad below the placenta. Bleeding was moderate to more than average. Her preoperative hemoglobin was 12.1. Postoperatively, her hemoglobin fell to 8.9. On the second postoperative day, she was ambulating well, eating well. She had been afebrile throughout her postoperative course. There was no calf tenderness. The incision was clean and dry. Vaginal bleeding was minimal and she requested early discharge. She was given prescriptions for Percocet and Motrin and given the usual post- instructions and told to call the office for removal of the sutures.
[2020-05-13] MEDS ORDERED: bisacodyL 10 MG SUPP PR PRN (22:38)
--- NOTE | 2020-05-14 08:05 | Operative Report (OR) ---
DATE OF OPERATION: 05/11/2020 DELIVERY NOTE INDICATION FOR SURGERY: This is a 29-year-old G1, P0 at term. The patient was induced for, 1. Obesity. 2. Polyhydramnios. 3. Macrosomia. She received Cervidil and Cytotec and Pitocin. There was no cervical change after several doses of Cervidil and Pitocin all day. Repeat ultrasound done today showed estimated weight of over 10 pounds. I discussed risks of shoulder dystocia with the patient. The patient finally agreed to undergo section. PREOPERATIVE DIAGNOSES: 1. Obesity. 2. Polyhydramnios. 3. Macrosomia. POSTOPERATIVE DIAGNOSES: 1. Obesity. 2. Polyhydramnios. 3. Macrosomia. SURGEON: Kiran Santizo MD HYBRID [employer] MECHANIC: Dr. Garland. ANESTHESIA: Spinal. ESTIMATED BLOOD LOSS: 850 mL. URINE OUTPUT: 125 mL clear urine at the end of the procedure. INTRAVENOUS FLUIDS: 3000 mL. FINDINGS: Normal uterus, tubes, and ovary. Delivered a live infant. Weight and Apgars in the pediatric record. Infant weighed over 10 pounds. COMPLICATIONS: None. DRAINS: Boudreaux catheter. PATHOLOGY: Placenta, cord blood, and cord gas. DESCRIPTION OF PROCEDURE: The patient was taken to the operating room where she was prepped and draped in normal sterile fashion. Timeout was called. A vertical incision was made and carried down to the fascia with a scalpel. Fascia was incised in the midline and extended superiorly and inferiorly. Rectus abdominus muscle was identified. Peritoneum was identified and entered sharply. An Jacques retractor was placed for retraction. Vesicouterine peritoneum was sharply dissected off the lower segment of the uterus. Low transverse incision was made on the lower segment of the uterus and extended laterally using bandage scissors. The infant's head was delivered. There was a true knot. Cord was clamped and cut. Infant was handed over to the pediatric team. Infant's weight and Apgars are in the pediatric record. Cord blood and cord gases obtained. Placenta was manually removed. Uterus was exteriorized and cleared of all clots and debris. Uterus was closed in 2 layers using Vicryl. There was good hemostasis. Copious amount of irrigation was used to irrigate the abdomen. Vesicouterine peritoneum was reapproximated with plain suture. Uterus was returned into the abdominal cavity. The fascia was closed in a running fashion using PDS suture. Irrigation was used to irrigate the subQ space which was closed in layers with plain suture. Silk was used to close the skin in mattress closure and boone were used as well. All instruments were removed from the abdomen and accounted for x2 including sponges, needles, and retractors. Mother and baby are stable in recovery. I attest to the content of the Intraoperative Record and any orders documented therein. Any exception s are noted below.
== END 2020-05-13 11:45 | disposition home or self-care (01) | DRG 787 ==
LOC: 4S1 07:51 → 4S2 05-12 01:43
DX: O48.0 Post-term pregnancy; R03.0 Elevated blood-pressure reading, without diagnosis of hypertension; E66.01 Morbid (severe) obesity due to excess calories; B37.3 Candidiasis of vulva and vagina; Z3A.40 40 weeks gestation of pregnancy; O36.63X0 Maternal care for excessive fetal growth, third trimester, not applicable or unspecified; O34.43 Maternal care for other abnormalities of cervix, third trimester; O28.8 Other abnormal findings on antenatal screening of mother; O23.593 Infection of other part of genital tract in pregnancy, third trimester; O69.89X0 Labor and delivery complicated by other cord complications, not applicable or unspecified; O26.893 Other specified pregnancy related conditions, third trimester; Z37.0 Single live birth; O43.93 Unspecified placental disorder, third trimester; O99.810 Abnormal glucose complicating pregnancy; O99.214 Obesity complicating childbirth; O40.3XX0 Polyhydramnios, third trimester, not applicable or unspecified; Z87.891 Personal history of nicotine dependence; Z79.899 Other long term (current) drug therapy